=== PATIENT | male | born 1995 ===

== ENCOUNTER → 2021-03-03 | Outpatient (REF) ==
--- NOTE | 2021-03-04 04:32 | REPPI ---
INDICATION: DISABILITY DIAGNOSIS DETERMINATION COMPARISON: None. TECHNIQUE: Frontal view of the chest with multiple views of the right and left hemithorax. Eight total views. FINDINGS: Frontal view of the chest demonstrates no acute cardiopulmonary process, contusion, effusion, or pneumothorax. Multiple views of the right and left hemithorax demonstrates no acute rib fracture/injury or pathology. IMPRESSION: No obvious acute rib fracture or pathology appreciated. <Electronically signed by Carlos Conley > 03/04/21 0428
== END ==
LOC: M PLAIMG 14:03
PROVIDERS: ATTEND Internal Medicine
DX: Z00.00 Encounter for general adult medical examination without abnormal findings (principal)